=== PATIENT | female | born 1955 | race Caucasian/White ===

== ENCOUNTER 2020-09-26 08:23 | Emergency (ER) | payer OTHER ==
[~2020-09-26] VITALS: Ht 165.1 cm; Wt 68.0 kg
[2020-09-26] MEDS ORDERED: LIPITOR 10 MG10 M1 PO (08:38)
[2020-09-26] MEDS ORDERED: NORVASC10 MG PO (08:38)
[2020-09-26] MEDS ORDERED: PREDNISONE50 MG PO (09:23)
[2020-09-26] MEDS ORDERED: PERCOCET 5-3251 EACH PO (09:23)
[2020-09-26] MEDS ORDERED: FLEXERIL PO (09:23)
[2020-09-26] MEDS ORDERED: IBUPROFEN 800800 M1 PO (09:23)
[2020-09-26 09:41] VITALS: BP 124/84
== END 2020-09-26 09:41 | disposition home or self-care (01) ==
LOC: M.ERS 08:23
DX: M54.5 Low back pain (principal); E78.5 Hyperlipidemia, unspecified; I10 Essential (primary) hypertension; Z90.49 Acquired absence of other specified parts of digestive tract; Z90.710 Acquired absence of both cervix and uterus; Z88.6 Allergy status to analgesic agent; Z88.0 Allergy status to penicillin; Z88.5 Allergy status to narcotic agent; Z79.899 Other long term (current) drug therapy